=== PATIENT | female | born 1945 | race Caucasian/White ===

== ENCOUNTER 2022-09-12 00:02 | Day surgery (SDC) | payer MEDICARE, MEDICAID, SELFPAY ==
[2022-07-09 15:00] VITALS: BMI 32.3
[2022-08-27 13:10] VITALS: BMI 32.3
--- NOTE | 2022-09-11 15:02 | PM.HPGS ---
History of Present Illness History of Present Illness Consent: Risks, benefits, and alternatives have been discussed and questions answered. Patient agrees to proceed with procedure. Chief complaint: hx of colon polyps Narrative: Jessica Nguyen is a 76 year old female Referred for colon cancer screening. Six years ago she had 1 polyp removed at the time of colonoscopy. In the last few years she was diagnosed with spinal stenosis. This resulted in the inability to have a bowel movement for several days. Finally, by increasing dietary fiber and taking magnesium tablets she is having more normal stools. Now however she occasionally has leakage of stool. She has also been diagnosed with ALS. Review of Systems Review of Systems: All systems reviewed & are unremarkable except as noted in HPI and below PMFSH Social History Social History Smoking status: Never smoker Alcohol intake: never Substance use: never Substance use type: does not use Living arrangements: alone Spiritual care concerns: No Meds Home Medications and Allergies Home Medications Medication Instructions Recorded Confirmed Type atenolol 50 mg tablet 50 mg PO DAILY 07/09/22 08/27/22 History cyclobenzaprine 5 mg tablet 5 mg PO PRN 07/09/22 08/27/22 History magnesium 250 mg tablet 400 mg PO DAILY 07/09/22 08/27/22 History metformin 500 mg tablet 500 mg PO BID 07/09/22 08/27/22 History omega-3 fatty acids-fish oil 684 2 cap PO DAILY 07/09/22 08/27/22 History mg-1,200 mg capsule,delayed release omeprazole 20 mg capsule,delayed 20 mg PO DAILY 07/09/22 08/27/22 History release quinine sulfate 300 mg capsule 300 mg PO PRN 07/09/22 08/27/22 History syringe with needle 3 mL 25 gauge 07/09/22 08/27/22 History x 1 (BD Luer-Storm Syringe) tramadol 50 mg tablet 50 mg PO PRN 07/09/22 08/27/22 History Allergies Allergy/AdvReac Type Severity Reaction Status Date / Time gluten AdvReac Severe CHEST AND Verified 09/12/22 08:09 BACK PAIN Penicillins AdvReac Intermediate NAUSEA Verified 09/12/22 08:09 VOMITING NSAIDS (Non-Steroidal AdvReac Nausea and Verified 09/12/22 08:09 Anti-Inflamma Vomiting [id number] Reductase AdvReac Other Verified 09/12/22 08:09 Inhibitor Exam Const: General: alert Orientation/consciousness: patient oriented x3 Resp: Auscultation: clear to auscultation bilaterally Cardio: Rhythm: regular rhythm GI: GI Palp: Yes Soft to palpation and No Tenderness to palpation present (GI) Neuro: General: patient oriented x3 Assessment and Plan Assessment and plan (1) Colon cancer screening: Code(s): Z12.11 - Encounter for screening for malignant neoplasm of colon Status: Acute Assessment and Plan: Colonoscopy with possible biopsy or polypectomy or cautery or injection of substances.
[2022-09-12 08:10] VITALS: BP 173/70; PULSE 71; RESP 18; TEMP 36.1; O2SAT 98; BMI 32.1
[2022-09-12] MEDS: LACTATED RINGERS 1,000 ML 150 ML IV CONT (08:21)
[2022-09-12 08:26] LABS: Glucose Point of Care 163 mg/dl (65-105)
--- NOTE | 2022-09-12 09:09 | P.PNAN_ITS ---
Anes - Initial Pre Proc Eval Procedure: Operation Date: 09/12/22 09:15 Proposed Procedures p Screening Colonoscopy - Live Amin MD Date/Time: 09/12/22 09:09 Surgeon: Live Amin MD Pre Op Diagnosis: hx of colon polyps Patient Data Age: 76 Gender: F Height: 1.63 m Weight: 84.8 kg Last Vital Signs Temp 97 F L 09/12/22 08:10 Pulse 71 09/12/22 08:10 Resp 18 09/12/22 08:10 BP 173/70 H 09/12/22 08:10 Pulse Ox 98 09/12/22 08:10 O2 Del Method Room Air 09/12/22 08:10 Allergies Allergy/AdvReac Type Severity Reaction Status Date / Time gluten AdvReac Severe CHEST AND Verified 09/12/22 08:09 BACK PAIN Penicillins AdvReac Intermediate NAUSEA Verified 09/12/22 08:09 VOMITING NSAIDS (Non-Steroidal AdvReac Nausea and Verified 09/12/22 08:09 Anti-Inflamma Vomiting Ahaglcf-[id number] Reductase AdvReac Other Verified 09/12/22 08:09 Inhibitor Home Medications Medication Instructions Recorded Confirmed Type atenolol 50 mg tablet 50 mg PO DAILY 07/09/22 08/27/22 History cyclobenzaprine 5 mg tablet 5 mg PO PRN 07/09/22 08/27/22 History magnesium 250 mg tablet 400 mg PO DAILY 07/09/22 08/27/22 History metformin 500 mg tablet 500 mg PO BID 07/09/22 08/27/22 History omega-3 fatty acids-fish oil 684 2 cap PO DAILY 07/09/22 08/27/22 History mg-1,200 mg capsule,delayed release omeprazole 20 mg capsule,delayed 20 mg PO DAILY 07/09/22 08/27/22 History release quinine sulfate 300 mg capsule 300 mg PO PRN 07/09/22 08/27/22 History syringe with needle 3 mL 25 gauge 07/09/22 08/27/22 History x 1 (BD Luer-Storm Syringe) tramadol 50 mg tablet 50 mg PO PRN 07/09/22 08/27/22 History Laboratory Tests 09/12/22 08:20 POC Capillary Glucose 163 mg/dl H mg/dl (65-105) Patient hx anesthesia problems: none Family hx anesthesia problems: none Results Review: All pre-operative results and documents have been reviewed as part of the pre- operative evaluation. [facility] Social History Social History Smoking status: Never smoker Alcohol intake: never Substance use: never Substance use type: does not use Living arrangements: alone Spiritual care concerns: No Anes - Eval Final PreProcedure Day of Procedure 09/12/22 09:09 Patient weight: obese Heart: regular rate and rhythm Lungs: clear to auscultation Neurological: alert and oriented Last oral intake: >/= 8 hours Emergent: no Anesthetic plan: proceed Results Review: All pre-operative results and documents have been reviewed as part of the pre- operative evaluation. Informed Consent: The patient's anesthetic plan and its attendant risks and benefits were discussed with the patient/family/POA. Questions were solicited and answers provided to the satisfaction of the patient/family/POA.
[2022-09-12 09:43] VITALS: BP 130/68; PULSE 74; RESP 18; O2SAT 97
[2022-09-12 09:53] VITALS: BP 139/74; PULSE 62; RESP 18; O2SAT 99
[2022-09-12 09:57] VITALS: BP 135/72; PULSE 66; RESP 18; O2SAT 98
== END 2022-09-12 10:14 | disposition home or self-care (01) ==
PROVIDERS: PCP Nurse Practitioner Adult Health; Visit Provider Internal Medicine Gastroenterology
PROC: 0DJD8ZZ Inspection of Lower Intestinal Tract, Via Natural or Artificial Opening Endoscopic (ICD-10-PCS; CPT 45378; principal; 2022-09-12 09:15)
DX: Z12.11 Encounter for screening for malignant neoplasm of colon (principal); D12.4 Benign neoplasm of descending colon; K57.30 Diverticulosis of large intestine without perforation or abscess without bleeding; Z79.84 Long term (current) use of oral hypoglycemic drugs; E66.9 Obesity, unspecified; Z68.32 Body mass index [BMI] 32.0-32.9, adult
CPT/HCPCS: 45385; 82948; 88305; J2704; J7120

== ENCOUNTER 2022-11-12 01:42 | Day surgery (SDC) | payer MEDICARE, MEDICAID, SELFPAY ==
[2022-10-31 10:31] VITALS: BMI 32.7
[2022-11-12 08:29] VITALS: BP 172/86; PULSE 72; RESP 18; TEMP 36.5; O2SAT 99; BMI 32.9
--- NOTE | 2022-11-12 08:39 | PM.HPGS ---
History of Present Illness History of Present Illness Consent: Risks, benefits, and alternatives have been discussed and questions answered. Patient agrees to proceed with procedure. Chief complaint: hx of esophageal tumor Narrative: Jessica Nguyen is a 76 year old female here for follow-up of a previously diagnosed esophageal polyp. She had been referred to [facility] where a was removed. I told her that it was a potentially cancers lesion. She was supposed to go back for a recheck 6 months later but was unable to do so. She is having some swallowing issues. She feels that maybe neurologic, she has ALS syndrome. It Is certain liquid consistencies that give her difficulty. Review of Systems Review of Systems: All systems reviewed & are unremarkable except as noted in HPI and below PMFSH Social History Social History Smoking status: Never smoker Alcohol intake: never Substance use: never Substance use type: does not use Living arrangements: alone Spiritual care concerns: No Meds Home Medications and Allergies Home Medications Medication Instructions Recorded Confirmed Type atenolol 50 mg tablet 50 mg PO DAILY 07/09/22 11/12/22 History cyclobenzaprine 5 mg tablet 5 mg PO TID PRN muscle spasms 07/09/22 11/12/22 History magnesium 250 mg tablet 500 mg PO HS 07/09/22 11/12/22 History metformin 500 mg tablet 1,000 mg PO BID 07/09/22 11/12/22 History omega-3 fatty acids-fish oil 684 2 cap PO DAILY 07/09/22 11/12/22 History mg-1,200 mg capsule,delayed release omeprazole 20 mg capsule,delayed 20 mg PO DAILY 07/09/22 11/12/22 History release quinine sulfate 300 mg capsule 300 mg PO TID PRN temors 07/09/22 11/12/22 History syringe with needle 3 mL 25 gauge 07/09/22 11/12/22 History x 1 (BD Luer-Storm Syringe) tramadol 50 mg tablet 50 - 100 mg PO Q6H PRN Pain 07/09/22 11/12/22 History cyanocobalamin (vitamin B-12) 1,000 mcg IM WEEKLY 10/31/22 11/12/22 History 1,000 mcg/mL injection solution fluticasone propionate 50 1 spray intranasal DAILY PRN 10/31/22 11/12/22 History mcg/actuation nasal Allergy Symptoms spray,suspension Allergies Allergy/AdvReac Type Severity Reaction Status Date / Time gluten AdvReac Severe CHEST AND Verified 11/12/22 08:27 BACK PAIN Penicillins AdvReac Intermediate NAUSEA Verified 11/12/22 08:27 VOMITING NSAIDS (Non-Steroidal AdvReac Nausea and Verified 11/12/22 08:27 Anti-Inflamma Vomiting Hwnqrkx-RKF-VnH Reductase AdvReac Other Verified 11/12/22 08:27 Inhibitor Vital Signs Vital Signs - 24 hr 11/12/22 08:29 Temperature 36.5 C Pulse Rate 72 Respiratory Rate 18 Blood Pressure 172/86 H Pulse Oximetry 99 Oxygen Delivery Room Air Exam Const: General: alert Orientation/consciousness: patient oriented x3 Resp: Auscultation: clear to auscultation bilaterally Cardio: Rhythm: regular rhythm GI: GI Palp: Yes Soft to palpation and No Tenderness to palpation present (GI) Neuro: General: patient oriented x3 Assessment and Plan Assessment and plan (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
[2022-11-12 08:41] LABS: Glucose Point of Care 203 mg/dl (65-105)
[2022-11-12] MEDS: LACTATED RINGERS 1,000 ML 150 ML IV CONT (08:43)
--- NOTE | 2022-11-12 09:13 | WPDANESEPPF ---
Anes - Initial Pre Proc Eval Procedure: Operation Date: 11/12/22 09:30 Proposed Procedures p Esophagogastroduodenoscopy EGD - Live Amin MD Date/Time: 11/12/22 09:13 Surgeon: Live Amin MD Pre Op Diagnosis: hx of esophageal tumor Patient Data Age: 76 Gender: F Height: 1.63 m Weight: 87 kg Last Vital Signs Temp 97.7 F 11/12/22 08:29 Pulse 72 11/12/22 08:29 Resp 18 11/12/22 08:29 BP 172/86 H 11/12/22 08:29 Pulse Ox 99 11/12/22 08:29 O2 Del Method Room Air 11/12/22 08:29 Allergies Allergy/AdvReac Type Severity Reaction Status Date / Time gluten AdvReac Severe CHEST AND Verified 11/12/22 08:27 BACK PAIN Penicillins AdvReac Intermediate NAUSEA Verified 11/12/22 08:27 VOMITING NSAIDS (Non-Steroidal AdvReac Nausea and Verified 11/12/22 08:27 Anti-Inflamma Vomiting Mayvgid-[id number] Reductase AdvReac Other Verified 11/12/22 08:27 Inhibitor Home Medications Medication Instructions Recorded Confirmed Type atenolol 50 mg tablet 50 mg PO DAILY 07/09/22 11/12/22 History cyclobenzaprine 5 mg tablet 5 mg PO TID PRN muscle spasms 07/09/22 11/12/22 History magnesium 250 mg tablet 500 mg PO HS 07/09/22 11/12/22 History metformin 500 mg tablet 1,000 mg PO BID 07/09/22 11/12/22 History omega-3 fatty acids-fish oil 684 2 cap PO DAILY 07/09/22 11/12/22 History mg-1,200 mg capsule,delayed release omeprazole 20 mg capsule,delayed 20 mg PO DAILY 07/09/22 11/12/22 History release quinine sulfate 300 mg capsule 300 mg PO TID PRN temors 07/09/22 11/12/22 History syringe with needle 3 mL 25 gauge 07/09/22 11/12/22 History x 1 (BD Luer-Storm Syringe) tramadol 50 mg tablet 50 - 100 mg PO Q6H PRN Pain 07/09/22 11/12/22 History cyanocobalamin (vitamin B-12) 1,000 mcg IM WEEKLY 10/31/22 11/12/22 History 1,000 mcg/mL injection solution fluticasone propionate 50 1 spray intranasal DAILY PRN 10/31/22 11/12/22 History mcg/actuation nasal Allergy Symptoms spray,suspension Laboratory Tests 11/12/22 08:38 POC Capillary Glucose 203 mg/dl H mg/dl (65-105) Patient hx anesthesia problems: none Family hx anesthesia problems: none Results Review: All pre-operative results and documents have been reviewed as part of the pre-operative evaluation. [facility] Social History Social History Smoking status: Never smoker Alcohol intake: never Substance use: never Substance use type: does not use Living arrangements: alone Spiritual care concerns: No Anes - Eval Final PreProcedure Day of Procedure 11/12/22 09:13 Patient weight: obese Heart: regular rate and rhythm Lungs: clear to auscultation Airway: Mallampati scale class II Neurological: alert and oriented Last oral intake: >/= 8 hours ASA classification: III Emergent: no Anesthetic plan: proceed Anesthesia type and monitoring: general GIVS and standard monitoring Results Review: All pre-operative results and documents have been reviewed as part of the pre-operative evaluation. Informed Consent: The patient's anesthetic plan and its attendant risks and benefits were discussed with the patient/family/POA. Questions were solicited and answers provided to the satisfaction of the patient/family/POA.
[2022-11-12 09:22] VITALS: BP 143/73; PULSE 72; RESP 16; O2SAT 94
[2022-11-12 09:32] VITALS: BP 146/79; PULSE 65; RESP 22; O2SAT 98
[2022-11-12 09:42] VITALS: BP 146/88; PULSE 76; RESP 17; O2SAT 98
== END 2022-11-12 10:00 | disposition home or self-care (01) ==
PROVIDERS: PCP Family Medicine; Visit Provider Internal Medicine Gastroenterology
PROC: 0DJ08ZZ Inspection of Upper Intestinal Tract, Via Natural or Artificial Opening Endoscopic (ICD-10-PCS; CPT 43235; principal; 2022-11-12 09:30)
DX: Z09 Encounter for follow-up examination after completed treatment for conditions other than malignant neoplasm (principal); K21.9 Gastro-esophageal reflux disease without esophagitis; Z87.19 Personal history of other diseases of the digestive system; Z79.84 Long term (current) use of oral hypoglycemic drugs; E66.9 Obesity, unspecified; Z68.32 Body mass index [BMI] 32.0-32.9, adult
CPT/HCPCS: 43235; 82948; J2704; J7120

== ENCOUNTER 2023-12-02 11:31 | Outpatient (CLI) | payer MEDICARE, MEDICAID, SELFPAY ==
[2023-12-02 19:44] LABS: Hematocrit 47.2 % (37.0-47.0); Hemoglobin 14.9 g/dL (12.0-15.0); Mean Corpuscular HGB Conc 31.6 g/dl (32-36); Mean Corpuscular Hemoglobin 27.6 pg (26-34); Mean Corpuscular Volume 87.6 fl (80-100); Mean Platelet Volume 11.8 fl (7.4-10.4); Platelet Count Result 228 k/mm3 (150-375); Red Blood Count 5.39 M/mm3 (4.2-5.4); Red Cell Distribution Width 13.3 % (11.5-14.5); White Blood Count 11.5 K/mm3 (4.5-10.0)
[2023-12-02 21:21] LABS: Anion Gap 13 mmol/L (8-16); Blood Urea Nitrogen 16 mg/dL (7-17); Calcium 10.1 mg/dL (8.4-10.2); Carbon Dioxide 25 mmol/L (22-30); Chloride 103 mmol/L (98-107); Cholesterol 218 mg/dL (0-200); Estimated Glomerular Filt Rate > 60; Glucose 136 mg/dL (65-110); HDL Direct 33 mg/dL; Potassium 4.2 mmol/L (3.4-5.0); Sodium 141 mmol/L (137-145); Triglycerides 239 mg/dL (<150)
[2023-12-02 21:33] LABS: LDL Cholesterol Direct 147 mg/dL
[2023-12-02 21:48] LABS: Creatinine Urine 78.9 mg/dL
[2023-12-02 21:50] LABS: MALB Creatinine Ratio 10.8 mg/g (0-30); Microalbumin Urine Random 8.5 mg/L (0-16.7)
[2023-12-02 21:53] LABS: Thyroid Stimulating Hormone 0.116 uIU/mL (0.465-4.680)
[2023-12-02 22:28] LABS: Folic Acid > 20.0 ng/mL (2.76->20)
[2023-12-02 23:27] LABS: Hemoglobin A1C 7.3 % (<5.7)
[2023-12-02 23:29] LABS: Iron 160 ug/dL (37-170); Percent Iron Saturation 41 % (20-50)
== END 2023-12-02 11:32 | disposition home or self-care (01) ==
LOC: ANHBWCLAB 11:35
PROVIDERS: PCP Nurse Practitioner Adult Health; Visit Provider Nurse Practitioner Adult Health
DX: E11.9 Type 2 diabetes mellitus without complications (principal); E53.8 Deficiency of other specified B group vitamins; E55.9 Vitamin D deficiency, unspecified; G12.21 Amyotrophic lateral sclerosis; L65.9 Nonscarring hair loss, unspecified
CPT/HCPCS: 36415; 80048; 80061; 82043; 82306; 82607; 82728; 82746; 83036; 83540; 83550; 84443; 85027

== ENCOUNTER 2024-01-05 09:01 | Outpatient (CLI) | payer MEDICARE, MEDICAID, SELFPAY ==
--- NOTE | ~2024-01-05 | XR_ITS ---
EXAMINATION: XR abdomen/kub 1V DATE: 01/05/2024 09:16 INDICATION: Right abdominal pain. TECHNIQUE: A supine view of the abdomen on 2 radiographs was obtained. COMPARISON: None. FINDINGS: There are no dilated loops of bowel. There is a moderate volume of stool in the colon. Ther e is no visible urolithiasis. IMPRESSION: 1. Nonobstructive bowel gas pattern. Reviewed, dictated and finalized at location A. OR UI DESIGNER
[2024-01-05 20:25] LABS: Appearance Urine Clear (Clear); Bacteria Urine Rare /hpf; Bilirubin Urine Negative (Negative); Blood Urine Negative (Negative); Color Urine Yellow (Yellow); Glucose Urine UA Negative (Negative); Ketones Urine Negative (Negative); Leukocyte Esterase Ur 2+ LEU/UL (NEGATIVE); Need Manual Microscopic Reviewed; Nitrate Urine Negative (Negative); Non Pathogenic Casts 0-2; Protein Urine Negative (Negative); RBC Urine 0-2 /hpf (0-2); Specific Grav Ur 1.018 (1.001-1.035); Squamous Epithelial Cell Urine None seen /hpf (Few); Urobilinogen Urine 0.2 mg/dL (<2.0); WBC Urine 0-5 /hpf (0-3); pH Urine 6.5 (5.0-9.0)
[2024-01-05 20:26] LABS: Add Urine Microscopic? YES
== END 2024-01-05 09:02 | disposition home or self-care (01) ==
PROVIDERS: PCP Nurse Practitioner Adult Health; Visit Provider Nurse Practitioner Adult Health
DX: R10.9 Unspecified abdominal pain (principal)
CPT/HCPCS: 74018; 81001

== ENCOUNTER 2024-02-09 08:42 | Outpatient (CLI) | payer MEDICARE, MEDICAID, SELFPAY ==
--- NOTE | ~2024-02-09 | XR_ITS ---
EXAMINATION: XR UGIAC w barium swallow DATE: 02/09/2024 09:39 INDICATION: Cough, unspecified. TECHNIQUE: The patient drank thick barium, gas-producing crystals, and thin barium. Fluoroscopy of th e esophagus, stomach, and proximal small bowel was performed. Fluoroscopy exposure time was 0.5 minut es. The total number of images was 274. Total dose-area product was 1.924 Gy-cm^2. COMPARISON: None. FINDINGS: There is no mass or stricture of the esophagus. There is decreased primary and secondary es ophageal peristalsis. There is no hiatal hernia. There was no gastroesophageal reflux with provocativ e maneuvers. The stomach and proximal small bowel show normal folding patterns. IMPRESSION: 1. Mild esophageal dysmotility. Reviewed, dictated and finalized at location A.
== END 2024-02-09 08:43 | disposition home or self-care (01) ==
LOC: ANHIMG 08:45
PROVIDERS: PCP Nurse Practitioner Adult Health; Visit Provider Nurse Practitioner Family
DX: K22.4 Dyskinesia of esophagus (principal); R05.9 Cough, unspecified
CPT/HCPCS: 74246

== ENCOUNTER 2024-02-10 12:48 | Outpatient (CLI) | payer MEDICARE, MEDICAID, SELFPAY ==
--- NOTE | 2024-02-22 17:28 | P.PCNPFT_ITS ---
PFT Procedure Performed PFT Procedure Performed Spirometry with Pre/Post Bronchodilator Plethysmography (Lung Vol) Diffusing Cap (DLCO) Flow Vol Loop PFT Interpretation DOS: 02/10/2024 REQUESTING: Arnold Owen APRN REASON FOR TESTING: Dyspnea, ALS-amyotrophic lateral sclerosis for 26 years PULMONARY FUNCTION TESTS Repeatability of spirometry FEV1 maneuver pre-bronchodilator was Grade B; , repeatability of spirometry FEV1 maneuver post-bronchodilator was Grade A Spirometry: Pre bronchodilator FEV1 is 2.23 L, 113% predicted, normal. Pre bronchodilator FVC is 3.08 L, 119%, normal. FEV1/FVC ratio 73%. After bronchodilator, there is a 13% increase in the FEV1, 2.52 L, 128%, normal. Afte r bronchodilator there is a 2% drop in the FVC, 3.02 L, 117%, normal. The FEV1/FVC ratio is 83% after bronchodilator administration. Lung volumes: The total lung capacity is 5.0 L, 99%, normal. ERV is 0.15 L, 17%, low. Residual volume is 1.88 L, 79% predicted, normal. RV/TLC is 38%, normal. Airway resistance is 2.47, 156% predicted, elevated. Diffusion: DLCO is 18.7, 96% predicted, normal. DLCO/VA is 4.44, 107%, normal. Flow volume loop: There is a lack of peak during the expiratory limb of the flow volume loop. Maximum inspiratory pressure is 37 cm of water pressure, 58% predicted. This is below the lower limit of normal. Maximum expiratory pressure is 40 cm water, 31% predicted, extremely low. This is below the lower limit of normal. IMPRESSION: This study shows normal spirometry with a significant response to bronchodilator, normal lung volumes and normal diffusion. The maximum inspiratory pressure is 58% predicted, slightly below the lower limit of normal. This is still close enough to normal that elevated pCO2 is not expected. The maximum expiratory pressure is reduced significantly more than the MIP. This finding may be associated with a weak cough and difficulty clearing secretions. This specific values noted for MIP and MEP are less important than trends. She has had ALS for 26 years, is clinically stable. There are no old values to compare. Nery Mercado MD
--- NOTE | 2024-02-22 17:47 | WPDSIXMINUTE ---
Six Minute Walk Procedure Procedure Performed Pulmonary Stress Test (6 min walk) Six Minute Walk Six Minute Walk: DATE OF SERVICE: 02/10/2024 REQUESTING: Arnold Owen APRN REASON FOR TESTING: dyspnea, ALS SIX MINUTE WALK This test was conducted per ATS guidelines. The initial saturation was 98%, and initial heart rate was 70 beats per minute. The patient walked without stopping, completing 800 ft/243.8 m. The saturation at the end of testing was 96%, and the heart rate was 80 beats per minute. The distance walked is slightly less than expected for her age. IMPRESSION: This is a normal study. The patient did not require supplemental oxygen with exertion. Nery Mercado MD
== END 2024-02-10 12:49 | disposition home or self-care (01) ==
PROVIDERS: PCP Nurse Practitioner Adult Health; Visit Provider Nurse Practitioner Family
DX: R06.09 Other forms of dyspnea (principal); G12.21 Amyotrophic lateral sclerosis
CPT/HCPCS: 94060; 94618; 94726; 94729

== ENCOUNTER 2024-05-16 09:37 | Outpatient (CLI) | payer MEDICARE, MEDICAID, SELFPAY ==
[2024-05-16 18:58] LABS: Basophils Absolute Auto 0.1 K/mm3 (0.0-0.1); Basophils Percent Auto 0.8 % (0.2-1.2); Eosinophils Absolute Auto 0.3 K/mm3 (0-0.3); Eosinophils Percent Auto 2.6 % (0-4.4); Hematocrit 46.2 % (37.0-47.0); Hemoglobin 15.2 g/dL (12.0-15.0); Immature Granulocyte Absolute 0.06 K/mm3 (0.00-0.031); Immature Granulocyte Percent A 0.6 % (0-0.5); Lymphocytes Absolute Auto 2.81 K/mm3 (0.9-3.2); Lymphocytes Percent Auto 29.7 % (18.3-44.2); Mean Corpuscular HGB Conc 32.9 g/dl (32-36); Mean Corpuscular Hemoglobin 29.3 pg (26-34); Mean Corpuscular Volume 89.2 fl (80-100); Mean Platelet Volume 11.3 fl (7.4-10.4); Monocytes Absolute Auto 0.6 K/mm3 (0.1-0.6); Monocytes Percent Auto 6.6 % (2.6-8.5); Neutrophils Absolute Auto 5.6 K/mm3 (1.3-6.7); Neutrophils Percent Auto 59.7 % (45.5-73.1); Platelet Count Result 175 k/mm3 (150-375); Red Blood Count 5.18 M/mm3 (4.2-5.4); Red Cell Distribution Width 13.5 % (11.5-14.5); White Blood Count 9.5 K/mm3 (4.5-10.0)
[2024-05-16 19:36] LABS: Creatinine Urine 73.3 mg/dL
[2024-05-16 20:36] LABS: MALB Creatinine Ratio < 8.2 mg/g (0-30); Microalbumin Urine Random < 6.0 mg/L (0-16.7)
[2024-05-16 22:27] LABS: Vitamin D 25 Hydroxy 33.9 ng/mL
[2024-05-16 23:21] LABS: Alanine Aminotransferase 32 U/L (6-35); Albumin Level 4.5 g/dL (3.5-5.1); Alkaline Phosphatase 46 U/L (38-126); Anion Gap 5 mmol/L (4-12); Aspartate Amino Transferase 34 U/L (14-36); Bilirubin,Total 0.6 mg/dL (0.2-1.3); Blood Urea Nitrogen 14 mg/dL (7-17); Calcium 9.8 mg/dL (8.4-10.2); Carbon Dioxide 29 mmol/L (22-30); Chloride 103 mmol/L (98-107); Cholesterol 209 mg/dL (0-200); Estimated Glomerular Filt Rate > 60; Glucose 132 mg/dL (65-110); HDL Direct 42 mg/dL; Magnesium 2.1 mg/dL (1.6-2.3); Potassium 4.5 mmol/L (3.4-5.0); Sodium 137 mmol/L (137-145); Triglycerides 220 mg/dL (<150)
[2024-05-16 23:32] LABS: LDL Cholesterol Direct 132 mg/dL
[2024-05-17 01:13] LABS: Hemoglobin A1C 6.5 % (<5.7)
== END 2024-05-16 09:38 | disposition home or self-care (01) ==
PROVIDERS: PCP Nurse Practitioner Adult Health; Visit Provider Nurse Practitioner Adult Health
DX: E55.9 Vitamin D deficiency, unspecified (principal); I10 Essential (primary) hypertension; E11.9 Type 2 diabetes mellitus without complications; E53.8 Deficiency of other specified B group vitamins
CPT/HCPCS: 36415; 80053; 80061; 82043; 82306; 82607; 82746; 83036; 83735; 85025

== ENCOUNTER 2024-08-29 09:51 | Outpatient (CLI) | payer MEDICARE, MEDICAID, SELFPAY ==
[2024-08-29 18:53] LABS: Add Urine Microscopic? YES; Appearance Urine Clear (Clear); Bacteria Urine Rare /hpf; Bilirubin Urine Negative (Negative); Blood Urine Negative (Negative); Color Urine Yellow (Yellow); Glucose Urine UA Negative (Negative); Ketones Urine Negative (Negative); Leukocyte Esterase Ur 2+ LEU/UL (Negative); Nitrate Urine Negative (Negative); Non Pathogenic Casts 0-2; Protein Urine Negative (Negative); RBC Urine 0-2 /hpf (0-2); Specific Grav Ur 1.013 (1.001-1.035); Squamous Epithelial Cell Urine None Seen /hpf (Few); Urobilinogen Urine 0.2 mg/dL (<2.0); pH Urine 7.5 (5.0-9.0)
[2024-08-29 19:00] LABS: Alanine Aminotransferase 27 U/L (6-35); Albumin Level 4.3 g/dL (3.5-5.1); Alkaline Phosphatase 42 U/L (38-126); Anion Gap 6 mmol/L (4-12); Aspartate Amino Transferase 36 U/L (14-36); Bilirubin,Total 0.5 mg/dL (0.2-1.3); Blood Urea Nitrogen 19 mg/dL (7-17); Calcium 9.4 mg/dL (8.4-10.2); Carbon Dioxide 28 mmol/L (22-30); Chloride 104 mmol/L (98-107); Cholesterol 218 mg/dL (0-200); Estimated Glomerular Filt Rate > 60; Glucose 146 mg/dL (65-110); HDL Direct 44 mg/dL; Potassium 4.1 mmol/L (3.4-5.0); Sodium 138 mmol/L (137-145); Triglycerides 125 mg/dL (<150)
[2024-08-29 19:08] LABS: Hemoglobin A1C 6.5 % (<5.7)
[2024-08-29 19:11] LABS: LDL Cholesterol Direct 154 mg/dL
[2024-08-29 19:19] LABS: Creatinine Urine 43.5 mg/dL
[2024-08-29 19:21] LABS: MALB Creatinine Ratio 14.3 mg/g (0-30); Microalbumin Urine Random 6.2 mg/L (0-16.7)
[2024-08-29 19:34] LABS: Vitamin D 25 Hydroxy 40.9 ng/mL
== END 2024-08-29 09:52 | disposition home or self-care (01) ==
PROVIDERS: PCP Nurse Practitioner Adult Health; Visit Provider Nurse Practitioner Adult Health
DX: R39.9 Unspecified symptoms and signs involving the genitourinary system (principal); E11.9 Type 2 diabetes mellitus without complications; I10 Essential (primary) hypertension; E55.9 Vitamin D deficiency, unspecified; E53.8 Deficiency of other specified B group vitamins
CPT/HCPCS: 36415; 80053; 80061; 81001; 82043; 82306; 82565; 82607; 83036; 87086; 87088

== ENCOUNTER 2025-03-15 10:06 | Outpatient (CLI) | payer MEDICARE, SELFPAY ==
--- NOTE | ~2025-03-15 | XR_ITS ---
Clinical Indication: Dyspnea, cough PA and lateral views of the chest: Comparison: None Findings: The lungs are clear, without evidence of focal consolidation or pleural effusion. Cardiome diastinal silhouette is within normal limits. Bones and soft tissues are unremarkable. Impression: Normal chest. Reviewed, dictated and finalized at location . Impression: Normal chest.
--- OUTSIDE RECORDS SUMMARY | 2025-03-15 11:07 | XMS_ITS | Continuity of Care Document ---
Author Organization [facility] Address [address] [place] [address] Phone Care Team Providers Care Campaign Management Senior Manager Name Role Phone Paris Sandoval Unavailable Unavailable Advance Directives Directive Yes / No Effective Date File Name No Information Encounters Encounter Description Practice Location Reason(s) For Visit Diagnoses Date Provider Providers Copied on Encounter [facility], [address], [place], [place], [id number], [place] tel:[phone] [facility] No Information [address] [place]. [address] , [address], [place], [address], [place]. tel:[phone] Family History Family Member Type Diagnosis Age At Onset No Information Payers Payer name Insurance type Covered alliance party ID Authoriza tion(s) No Information Social History Type Description Quantity Date Captured Comments Sex Female Smoking Status No Information Chief Complaint And Reason For Visit No Information Reason For Referral Reason For Referral No Information History Of Present Illness Encounter Date Complaint History Of Prese nt Illness No Information Functional Status Date Functional Assessmen t No Information Instructions Date Instruction Additional Infor mation No Information Assessments Type Assessment Date No Information Patient Care Teams Name Effective Dates (start - stop) Status Members No Information
--- OUTSIDE RECORDS SUMMARY | 2025-03-15 11:07 | XMS_ITS | Clinical Summary ---
Author Organization [facility] Medical Office Building B Address [address] [place] [address] Care Team Providers Care Cuff Setter Name Role Phone Layla Mitchell RN Unavailable Unavailable Sophia Pérez NP Primary Care Provider [phone] Allergies Active Allergy Reactions Criticality Noted Date Comments Cefdinir Diarrhea Low 11/04/2019 Cephalexin Other (See comments) Low 02/22/2016 Yeast infection Rosuvastatin Muscle pain Medium 11/04/2019 Etodolac Diarrhea,Nausea Only Low 02/22/2016 Gluten Other (See comments) Low 02/22/2016 Ibuprofen Nausea Only,Headache Low 02/22/2016 Indomethacin Other (See comments) Low 02/22/2016 headache Oxacillin Rash Medium 02/22/2016 Penicillin G Other (See comments) Medium Abdominal pain Penicillins Nausea Only,Other (S ee comments) Low 02/22/2016 Tolmetin Diarrhea Low 02/22/2016 Azithromycin Diarrhea Low 11/04/2019 Medications quiNIDine 300 mg tablet take 1 tablet by oral route 3 times every day with food 0 0 5 Active blood sugar diagnostic, drum (ACCU-CHEK COMPACT PLUS TEST) strip 0 strip 0 5 Active omeprazole 20 mg tablet,delayed release (DR/EC) 20 mg. 0 2 Active traMADol (ULTRAM) 50 mg tablet 1 8 Active atenolol (TENORMIN) 50 mg tablet Take 50 mg by mouth. Active cyclobenzaprine (FLEXERIL) 5 mg tablet Take 5 mg by mouth. Active metFORMIN (GLUCOPHAGE) 500 mg tablet Take 1,000 mg by mouth. Active ACCU-CHEK SARA PLUS TEST STRP strip TEST BID 3 9 Active DOXYCYCLINE HYCLATE 100 mg capsule 9 Active fluticasone propionate (FLONASE) 50 mcg/actuation nasal spray 9 Active cholecalciferol, vitD3,/vit K2 (VITAMIN D3-VITAMIN K2 ORAL) Take by mouth Active sucralfate (CARAFATE) 1 gram tabletIndication s:gastroesophage al reflux disease,esophage al squamous papilloma removed Take 1 tablet (1 g total) by mouth 4 (four) times a day for 14 days 56 tablet 9 Active acetaminophen 500 mg capsule Take by mouth as needed Active BD Luer-Storm Syringe 3 mL 25 gauge x 1 syringe DIRECTED WITH B12 INJECTION WEEKLY 4 Active lisinopriL (PRINIVIL,ZESTRI L) 40 mg tablet Take 1 tablet (40 mg total) by mouth daily 4 Active methylPREDNISolo ne (Medrol, Peyman,) 4 mg DosepackIndicati ons:Upper respiratory tract infection, unspecified type follow package directions 21 tablet 4 Active Active Problems Problem Noted Date Diagnosed Date Amyotrophic lateral sclerosis 12/08/2019 Arthritis 12/08/2019 Chronic pain 12/08/2019 Hyperlipidemia 12/08/2019 Hypertensive disorder 12/08/2019 Injury of tendon of rotator cuff 12/08/2019 Insomnia 12/08/2019 Shoulder pain 12/08/2019 Sleep apnea 12/08/2019 Type 2 diabetes mellitus 12/08/2019 Vitamin D deficiency 12/08/2019 Esophageal polyp 09/30/2019 Overview (09/30/2019): Added automatically from request for surgery [id number] [place] of foot 02/22/2016 Dermatophytosis of nail 02/22/2016 Diabetic polyneuropathy asso ciated with type 2 diabetes mellitus 02/22/2016 Ingrown nail 02/22/2016 Mass of breast 05/09/2010 Surgical History Surgery Date Site/Laterality Comments HYSTERECTOMY Hysterectomy APPENDECTOMY Appendectomy KNEE ARTHROSCOPY 11/30/1996 - 11/29/1997 Left Arthroscopy knee TONSILLECTOMY Tonsillectomy KNEE ARTHROPLASTY Bilateral Knee replacement COLONOSCOPY 2008 COLON POLYPECTOMY 2008 Medical History Medical History Date Comments Calculus of kidney kidney stones Hx Other Medical Breast biopsy Hx Other Medical degenertive dis c syndrome Gastroesophageal reflux disease GERD Depression Depression Hyperlipidemia Hyperlipidemia Hypertension Hypertension Osteoarthritis Osteoarthritis Diabetes mellitus (HCC) Diabetes Hx Other Medical myofibrosites Hx Other Medical urteral stone Hx Other Medical urethral stone extraxtion Hx Other Medical back pain Hx Other Medical abnormal heartb eat Sleep apnea Sleep apnea ALS (amyotrophic lateral sclerosis) (HCC) familiail diagnosis(rare inherited form), less aggressive, not as debilatating. Family History Medical History Relation Name Comments Stroke Father Breast cancer Mother Lung cancer Other 1 Family history of Cancer, lung; Coronary artery disease Other 2 Fami ly history of Coronary artery disease; Diabetes Other 3 Family history of Diabetes mellitus; Gout Other 4 Family history of Gout; Breast cancer Other 5 Family history of Cancer, breast; Other Other 6 Family history of Cancer, bone; Other Other 7 Family history of Cancer, brain; Skin cancer Other 8 Family history of cancer, skin; Hypertension Other 9 Family history of Hypertension; Lung disease Other 10 Family history of lung disease; Osteoarthritis Other 11 Family histor y of Osteoarthritis; Mental illness Other 12 Family histor y of Mental illness; Stroke Other 13 Family history of Stroke; Alcohol abuse Other 14 Family history of Alcoholism; Other Other 15 Family history of ALS; Relation Name Status Comments Father Mother Other 1 Other 2 Other 3 Other 4 Other 5 Other 6 Other 7 Other 8 Other 9 Other 10 Other 11 Other 12 Other 13 Other 14 Other 15 Social History Tobacco Use Types Packs/Day Years Used Date Smoking Tobacco: Former Smokeless Tobacco: Never Alcohol Use Standard Drinks/Week Comments No 0 (1 standard drink = 0.6 oz pur e alcohol) Comments Unknown Sex and Gender Information Value Date Recorded Sex Assigned at Not on file Legal Sex Female 12:46 AM SHAPER HAND Gender Identity Female 01/24/2021 6:39 PM SHAPER HAND Sexual Orientation Straight 01/24/2021 6: 39 PM SHAPER HAND Obstetrics History Last Filed Vital Signs Vital Sign Reading Time Taken Comments Blood Pressure 142/80 10/11/2024 2:56 PM SHAPER HAND Pulse 85 10/11/2024 2:56 PM SHAPER HAND Temperature 36.7 C (98 F) 10/11/2024 2:56 PM SHAPER HAND Respiratory Rate 17 10/11/2024 2:56 PM SHAPER HAND Oxygen Saturation 98% 10/11/2024 2:56 PM SHAPER HAND Inhaled Oxygen Concentration - - Weight 88 kg (194 lb) 10/11/2024 2:56 PM SHAPER HAND Height 162.6 cm (5' 4 ) 10/11/2024 2:56 PM SHAPER HAND Body Mass Index 33.3 10/11/2024 2:56 PM SHAPER HAND Plan of Treatment Health Maintenance Due Date Last Done Comments Albumin Creatinine Ratio, Urine 1944 Depression Screening 1944 Fall Risk Assessment 1944 Hemoglobin A1C 1944 eGFR 1944 Dilated Eye Exam 1944 Foot Exam 1944 Lipid Panel 1944 Hepatitis B Screening 1962 Pneumococcal vaccine 65+ (1 of 2 - PCV) 1963 Zoster Vaccine (1 of 2) 1994 Well Visit 65+ 2009 DTaP/Tdap/Td Vaccine (2 - Tdap) 07/28/2022 2 Influenza Vaccine (#1) 2024 Osteoporosis Screening-Bone Density Scan 01/18/2026 01/18/2024, 01/18/2024, 09/12/2016 Insurance MEDICARE [facility] MEDICARE [place] MEDICARE [place] Advance Directives For more information, please contact: [phone] * Full Code (Latest Code Status on File) Date Activated Date Inactivated Comments 11/04/2019 1:07 PM 11/04/2019 7:25 PM Care Teams Cuff Setter Relationship Specialty Start Date End Date Sophia Pérez NP PCP - General Nurse Practitioner 11/18/19 Layla Mitchell, RN Registered Nurse Gastroenterology 09/30/19
--- OUTSIDE RECORDS SUMMARY | 2025-03-15 11:07 | XMS_ITS | Referral Summary ---
Author Organization [facility] Medical Office Building B Address [address] [place] [address] Care Team Providers Care Television Engineering Teacher Name Role Phone Layla Mitchell RN Unavailable Unavailable Sophia Pérez NP Primary Care Provider [phone] Allergies Active Allergy Reactions Criticality Noted Date [...] (09/30/2019): Added automatically from request for surgery [id number] [place] of foot 02/22/2016 Dermatophytosis of nail 02/22/2016 Diabetic polyneuropathy asso ciated with type 2 diabetes mellitus 02/22/2016 Ingrown nail 02/22/2016 Mass of breast 05/09/2010 Social History Tobacco Use Types Packs/Day Years Used Date Smoking Tobacco: Former Smokeless Tobacco: Never Alcohol Use Standard Drinks/Week Comments No 0 (1 standard drink = 0.6 oz pur e alcohol) Comments Unknown Sex and Gender Information Value Date Recorded Sex Assigned at Not on file Legal Sex Female 12:46 AM WELL LOGGING CAPTAIN MUD ANALYSIS Gender Identity Female 01/24/2021 6:39 PM WELL LOGGING CAPTAIN MUD ANALYSIS Sexual Orientation Straight 01/24/2021 6: 39 PM WELL LOGGING CAPTAIN MUD ANALYSIS Last Filed Vital Signs Vital Sign Reading Time Taken Comments Blood Pressure 142/80 10/11/2024 2:56 PM WELL LOGGING CAPTAIN MUD ANALYSIS Pulse 85 10/11/2024 2:56 PM WELL LOGGING CAPTAIN MUD ANALYSIS Temperature 36.7 C (98 F) 10/11/2024 2:56 PM WELL LOGGING CAPTAIN MUD ANALYSIS Respiratory Rate 17 10/11/2024 2:56 PM WELL LOGGING CAPTAIN MUD ANALYSIS Oxygen Saturation 98% 10/11/2024 2:56 PM WELL LOGGING CAPTAIN MUD ANALYSIS Inhaled Oxygen Concentration - - Weight 88 kg (194 lb) 10/11/2024 2:56 PM WELL LOGGING CAPTAIN MUD ANALYSIS Height 162.6 cm (5' 4 ) 10/11/2024 2:56 PM WELL LOGGING CAPTAIN MUD ANALYSIS Body Mass Index 33.3 10/11/2024 2:56 PM WELL LOGGING CAPTAIN MUD ANALYSIS Plan of Treatment Not on file Insurance MEDICARE [facility] MEDICARE ID[place] MEDICARE IDPA Advance Directives For more information, please contact: [phone] * Full Code (Latest Code Status on File) Date Activated Date Inactivated Comments 11/04/2019 1:07 PM 11/04/2019 7:25 PM Care Teams Television Engineering Teacher Relationship Specialty Start Date End Date Sophia Pérez NP PCP - General Nurse Practitioner 11/18/19 Layla Mitchell, RN Registered Nurse Gastroenterology 09/30/19
--- OUTSIDE RECORDS SUMMARY | 2025-03-15 11:07 | XMS_ITS | Clinical Summary ---
Author Organization [facility] Address [address] [facility], [place] [address] Phone Care Team Providers Care Judge Clerk Name Role Phone Sophia Pérez CORI Primary Care Provider [phone] Efrem Jackson DPM Unavailable [phone] Allergies Active Allergy Reactions Criticality Noted Date Comments Alka4-Complex Diarrhea 02/22/2016 Sabrina butozoliden Cephalexin Other (see Comments) 02/22/2016 Yeast infection Gluten Meal Other (see Comments) 02/22/2016 Indomethacin Other (see Comments) 02/22/2016 headache Etodolac Nausea 02/22/2016 Ibuprofen Nausea 02/22/2016 Other Nausea,Vomiting 02/22/2016 stebesteril Penicillins Nausea,Other (see Comments) 016 Oxacillin Rash 02/22/2016 Tolmetin Diarrhea 02/22/2016 Medications atenolol (TENORMIN) 50 MG Tablet Take 50 mg by mouth daily. Active spironolactone (ALDACTONE) 25 MG Tablet Take 25 mg by mouth daily. Active metFORMIN (GLUCOPHAGE) 500 MG Tablet Take 1,000 mg by mouth 2 times daily (with meals). Active Melatonin 10 MG Tablet Take 10 mg by mouth nightly. Active traMADol (ULTRAM) 50 MG Tablet Take 50-100 mg by mouth every 6 hours as needed for Pain. Active cyclobenzaprine (FLEXERIL) 5 MG Tablet Take 5 mg by mouth 3 times daily. Active diphenhydrAMINE (BENADRYL) 25 MG Tablet Take 25 mg by mouth as needed. Active fluticasone (FLONASE) 50 MCG/ACT Suspension 1-2 Sprays by Nasal route daily. Use in each nostril as directed. Active predniSONE (DELTASONE) 50 MG Tablet Take 1 Tab by mouth daily. 5 Tab 08/26/2017 Active famotidine (PEPCID) 20 MG Tablet Take 1 Tab by mouth 2 times daily. 12 Tab 08/26/2017 Active HYDROcodone-arianna taminophen (NORCO) 5-325 MG Tablet Take 1-2 Tabs by mouth every 6 hours as needed for Pain. 10 Tab 08/26/2017 Active Active Problems Problem Noted Date Diagnosed Date Ingrown nail 02/22/2016 [place] of foot 02/22/2016 Dermatophytosis of nail 02/22/2016 Diabetic polyneuropathy asso ciated with type 2 diabetes mellitus 02/22/2016 Family History Relation Name Status Comments Father Mother Social History Tobacco Use Types Packs/Day Years Used Date Smoking Tobacco: Former Smokeless Tobacco: Former Quit: 12/24/1964 Tobacco Cessation:Counseling Given: No Alcohol Use Standard Drinks/Week Comments No 0 (1 standard drink = 0.6 oz pur e alcohol) Comments No Sex and Gender Information Value Date Recorded Sex Assigned at Not on file Legal Sex Female 4:14 PM DATA GOVERNANCE CONSULTANT Gender Identity Not on file Sexual Orientation Not on file Last Filed Vital Signs Vital Sign Reading Time Taken Comments Blood Pressure 157/71 08/26/2017 4:38 AM CDT Pulse 87 08/26/2017 4:38 AM CDT Temperature 36.2 C (97.2 F) 08/26/2017 4:38 AM CDT Respiratory Rate 18 08/26/2017 4:38 AM CDT Oxygen Saturation 97% 08/26/2017 4:38 AM CDT Inhaled Oxygen Concentration - - Weight 89.8 kg (198 lb) 08/26/2017 4:38 AM CDT Height 162.6 cm (5' 4 ) 08/26/2017 4:38 AM CDT Body Mass Index 33.99 08/26/2017 4:38 AM CDT Plan of Treatment Health Maintenance Due Date Last Done Comments Diabetes: Eye Exam 1944 Diabetes: Foot Exam 1944 Diabetes: Hemoglobin A1c 1944 Hepatitis C Virus (HCV) Screening 1944 TdaP Immunization 1944 Diabetes: Nephropathy Screening 1962 Pneumococcal Immunization (50+ years) (1 of 2 - PCV) 1963 Zoster Immunization (1 of 2) 1994 Respiratory Syncytial Virus (RSV) Immunization (Adult) (1 - 1-dose 75+ series) 2019 Influenza Immunization (#1) 2024 SARS-COV-2 Immunization ( season) 2024 10/04/2021, 02/15/2021, 01/26/2021 DEXA Bone Density 01/18/2026 01/18/2024, 09/12/2016 DTaP/Tdap/Td Immunization Discontinued 07/28/2012 Hepatitis B Immunization Aged Out No longer eligible based on patient's age to complete this topic Meningococcal Immunization (ACWY) Aged Out No longer eligible based on patient's age to complete this topic Rotavirus Immunization Aged Out No lo nger eligible based on patient's age to complete this topic Procedures Procedure Name Priority Date/Time Associated Diagnosis Comments [facility] BONE DENSITOMETRY AXIAL SKELETON Routine 01/18/2024 10:45 AM DATA GOVERNANCE CONSULTANT Asymptomatic menopausal state from Last 3 Months or Most Recently Relevant to Health Maintenance Results * [facility] BONE DENSITOMETRY AXIAL SKELETON (01/18/2024 10:45 AM DATA GOVERNANCE CONSULTANT) Anatomical Region Laterality Modality BODY N/A Computed Radiogr aphy 01/18/2024 6:24 PM DATA GOVERNANCE CONSULTANT Impressions 01/18/2024 6:27 PM DATA GOVERNANCE CONSULTANT IMPRESSION: Low Bone Mass. REFERENCE: Bone mineral density: Normal (T-score above or = -1.0) Low bone mass (T-score between -1.0 and -2.5) replaces the previously used term osteopenia Osteoporosis (T-score = or below -2.5) Please see below follow up recommendations. Medical evaluation for secondary causes of low bone mineral density may be appropriate. FRAX is a World Health Organization validated fracture risk assessment tool that calculates a person's 10 year probability of a major osteoporosis related fracture and hip fracture. According to the National Osteoporosis Foundation guidelines, postmenopausal women and men age 50 or older with low bone mass and a 10 year probability of a major osteoporosis related fracture = or greater than 20% or a 10 year probability of a hip fracture = or greater than 3% should be considered for pharmacological treatment for the prevention of osteoporosis. For further information, including treatment recommendations, please refer to the 2019 ISCD Official Positions (http://www.iscd.org) and the NOF's Clinician's Guide to Prevention and Treatment of Osteoporosis (http://www.nof.org/professionals/clinical-guidelines) Narrative 01/18/2024 6:27 PM DATA GOVERNANCE CONSULTANT EXAM DESCRIPTION: [facility] BONE DENSITOMETRY AXIAL SKELETON REASON FOR STUDY: 78 y/o year old F with given history of: Asymptomatic menopausal state Perforator Operator Oil Well/Model: Hostel Rocket (S/N [id number]) CLINICAL INFORMATION: Current height: 64 inches Maximum height: 65 inches Weight: 187 pounds Risk factors: Postmenopausal, secondary osteoporosis COMPARISON: 09/12/2016 FINDINGS: AP LUMBAR SPINE L1-L4: Total BMD is 1.675 g/cm2 T-score is 3.9 This is decreased in comparison to prior exam which is statistically significant. LEFT HIP: Total BMD is 1.074 g/cm2 T-score is 0.5 This is decreased in comparison to prior exam which is statistically significant. Femoral neck BMD is 0.950 g/cm2 T-score is -0.6 LEFT forearm: 33% radius BMD is 0.727 g/cm2 T-score is -1.8 FRAX: 10 year risk for a major osteoporotic fracture is 9.5 %, 10 year risk for a hip fracture is 1.4 % THIS IS AN ELECTRONICALLY VERIFIED FINAL REPORT 01/18/2024 6:24 PM - Electronically signed by Zac Carpenter M.D. MF: [id number] Report ID: [id number] Reading Location: [id number] Procedure Note Zac Carpenter MD - 01/18/2024 EXAM DESCRIPTION: [facility] BONE DENSITOMETRY AXIAL SKELETON REASON FOR STUDY: 78 y/o year old F with given history of: Asymptomatic menopausal state Perforator Operator Oil Well/Model: Hostel Rocket (S/N [id number]) CLINICAL INFORMATION: Current height: 64 inches Maximum height: 65 inches Weight: 187 pounds Risk factors: Postmenopausal, secondary osteoporosis COMPARISON: 09/12/2016 FINDINGS: AP LUMBAR SPINE L1-L4: Total BMD is 1.675 g/cm2 T-score is 3.9 This is decreased in comparison to prior exam which is statistically significant. LEFT HIP: Total BMD is 1.074 g/cm2 T-score is 0.5 This is decreased in comparison to prior exam which is statistically significant. Femoral neck BMD is 0.950 g/cm2 T-score is -0.6 LEFT forearm: 33% radius BMD is 0.727 g/cm2 T-score is -1.8 FRAX: 10 year risk for a major osteoporotic fracture is 9.5 %, 10 year risk for a hip fracture is 1.4 % THIS IS AN ELECTRONICALLY VERIFIED FINAL REPORT 01/18/2024 6:24 PM - Electronically signed by Zac Carpenter M.D. MF: [id number] Report ID: [id number] Reading Location: [place] [id number] IMPRESSION: Low Bone Mass. REFERENCE: Bone mineral density: Normal (T-score above or = -1.0) Low bone mass (T-score between -1.0 and -2.5) replaces the previously used term osteopenia Osteoporosis (T-score = or below -2.5) Please see below follow up recommendations. Medical evaluation for secondary causes of low bone mineral density may be appropriate. FRAX is a World Health Organization validated fracture risk assessment tool that calculates a person's 10 year probability of a major osteoporosis related fracture and hip fracture. According to the National Osteoporosis Foundation guidelines, postmenopausal women and men age 50 or older with low bone mass and a 10 year probability of a major osteoporosis related fracture = or greater than 20% or a 10 year probability of a hip fracture = or greater than 3% should be considered for pharmacological treatment for the prevention of osteoporosis. For further information, including treatment recommendations, please refer to the 2019 ISCD Official Positions (http://www.iscd.org) and the NOF's Clinician's Guide to Prevention and Treatment of Osteoporosis (http://www.nof.org/professionals/clinical-guidelines) us Ognsalo B Hill MD IMG DEXA ORDERABLES Final Resul t from Last 3 Months or Most Recently Relevant to Health Maintenance Insurance MEDICARE [place]ICAID [place] Care Teams Judge Clerk Relationship Specialty Start Date End Date Sophia Pérez APRN PCP - General Advanced Practice Nurse 02/22/16 Efrem Jackson DPM Podiatry 02/22/16
== END 2025-03-15 10:07 | disposition home or self-care (01) ==
PROVIDERS: PCP Nurse Practitioner Adult Health; Visit Provider Nurse Practitioner Family
DX: R06.09 Other forms of dyspnea (principal)
CPT/HCPCS: 71046

== ENCOUNTER 2025-04-05 08:10 | Outpatient (CLI) | payer MEDICARE, SELFPAY ==
--- OUTSIDE RECORDS SUMMARY | 2025-04-05 08:20 | XMS_ITS | Clinical Summary ---
Author Organization [facility] Medical Office Building B Address [address] [place] [address] Care Team Providers Care Tree Sapper Name Role Phone Layla Mitchell RN Unavailable Unavailable Sophia Pérez NP Primary Care Provider [phone] Allergies Active Allergy Reactions Criticality Noted Date [...] (09/30/2019): Added automatically from request for surgery [id number] [place] of foot 02/22/2016 Dermatophytosis of nail 02/22/2016 [...] on file Legal Sex Female 12:46 AM PHYSICAL THERAPIST CENTER MANAGER Gender Identity Female 01/24/2021 6:39 PM PHYSICAL THERAPIST CENTER MANAGER Sexual Orientation Straight 01/24/2021 6: 39 PM PHYSICAL THERAPIST CENTER MANAGER Obstetrics History Last Filed Vital Signs Vital Sign Reading Time Taken Comments Blood Pressure 142/80 10/11/2024 2:56 PM PHYSICAL THERAPIST CENTER MANAGER Pulse 85 10/11/2024 2:56 PM PHYSICAL THERAPIST CENTER MANAGER Temperature 36.7 C (98 F) 10/11/2024 2:56 PM PHYSICAL THERAPIST CENTER MANAGER Respiratory Rate 17 10/11/2024 2:56 PM PHYSICAL THERAPIST CENTER MANAGER Oxygen Saturation 98% 10/11/2024 2:56 PM PHYSICAL THERAPIST CENTER MANAGER Inhaled Oxygen Concentration - - Weight 88 kg (194 lb) 10/11/2024 2:56 PM PHYSICAL THERAPIST CENTER MANAGER Height 162.6 cm (5' 4 ) 10/11/2024 2:56 PM PHYSICAL THERAPIST CENTER MANAGER Body Mass Index 33.3 10/11/2024 2:56 PM PHYSICAL THERAPIST CENTER MANAGER Plan of Treatment Health Maintenance Due Date [...] (2 - Tdap) 07/28/2022 2 Influenza Vaccine (Season Ended) 2025 Osteoporosis Screening-Bone Density Scan 01/18/2026 01/18/2024, 01/18/2024, 09/12/2016 Insurance MEDICARE [facility] MEDICARE [place] MEDICARE ID[place] Advance Directives For more information, please contact: [phone] * Full Code (Latest Code Status on File) Date Activated Date Inactivated Comments 11/04/2019 1:07 PM 11/04/2019 7:25 PM Care Teams Tree Sapper Relationship Specialty Start Date End Date Sophia Pérez NP PCP - General Nurse Practitioner 11/18/19 Layla Mitchell, RN Registered Nurse Gastroenterology 09/30/19
--- OUTSIDE RECORDS SUMMARY | 2025-04-05 08:20 | XMS_ITS | Referral Summary ---
Author Organization [facility] Medical Office Building [address] Address [address] [place] [address] Care Team Providers Care Development Technical Lead Name Role Phone Layla Mitchell RN Unavailable Unavailable Sophia Pérez NP Primary Care Provider [phone] Allergies Active Allergy Reactions Criticality Noted Date [...] (09/30/2019): Added automatically from request for surgery [id number] [place] of foot 02/22/2016 Dermatophytosis of nail 02/22/2016 [...] on file Legal Sex Female 12:46 AM CARD GRINDER Gender Identity Female 01/24/2021 6:39 PM CARD GRINDER Sexual Orientation Straight 01/24/2021 6: 39 PM CARD GRINDER Last Filed Vital Signs Vital Sign Reading Time Taken Comments Blood Pressure 142/80 10/11/2024 2:56 PM CARD GRINDER Pulse 85 10/11/2024 2:56 PM CARD GRINDER Temperature 36.7 C (98 F) 10/11/2024 2:56 PM CARD GRINDER Respiratory Rate 17 10/11/2024 2:56 PM CARD GRINDER Oxygen Saturation 98% 10/11/2024 2:56 PM CARD GRINDER Inhaled Oxygen Concentration - - Weight 88 kg (194 lb) 10/11/2024 2:56 PM CARD GRINDER Height 162.6 cm (5' 4 ) 10/11/2024 2:56 PM CARD GRINDER Body Mass Index 33.3 10/11/2024 2:56 PM CARD GRINDER Plan of Treatment Not on file Insurance MEDICARE [facility] MEDICARE IDPA MEDICARE IDPA Advance Directives For more information, please contact: [phone] * Full Code (Latest Code Status on File) Date Activated Date Inactivated Comments 11/04/2019 1:07 PM 11/04/2019 7:25 PM Care Teams Development Technical Lead Relationship Specialty Start Date End Date Sophia Pérez NP PCP - General Nurse Practitioner 11/18/19 Layla Mitchell, RN Registered Nurse Gastroenterology 09/30/19
--- OUTSIDE RECORDS SUMMARY | 2025-04-05 08:20 | XMS_ITS | Continuity of Care Document ---
Author Organization [facility] Address [address] [place] [address] Phone Care Team Providers Care Fountain Jerk Name Role Phone Paris Sandoval Unavailable Unavailable Advance Directives Directive Yes / No Effective Date File Name No Information Encounters Encounter Description Practice Location Reason(s) For Visit Diagnoses Date Provider Providers Copied on Encounter [facility], [address], [place], [place], [id number], [place] tel:[phone] [facility] No Information [address] [place]. [address] , [address], [place], [address], [place]. tel:[phone] Family History Family Member Type Diagnosis Age At Onset No Information Payers Payer name Insurance type Covered green party ID Authoriza tion(s) No Information Social [...]
--- NOTE | 2025-04-05 12:57 | WPDPFTINT ---
PFT Procedure Performed PFT Procedure Performed Spirometry with Pre/Post Bronchodilator Plethysmography (Lung Vol) Diffusing Cap (DLCO) Flow Vol Loop PFT Interpretation This is a pulmonary function test with pre and post-bronchodilator spirometry, plethysmography and diffusing capacity. The test was performed and results interpreted in accordance with the 2019 and 2005 ATS/ERS Task Force guidelines respectively using the Global Lung Function Initiative-2012 reference equations. Patient demonstrated good effort and cooperation. Reproducibility criteria were met. The quality of the pre bronchodilator spirometry maneuver was Grade A and post bronchodilator spirometry maneuver was Grade A. Findings: Spirometry: the contour the expiratory flow tracing demonstrates a notched pattern in 2 of 4 pre bronchodilator maneuvers and 2 of 4 post bronchodilator maneuvers. The contour the inspiratory flow tracing is normal. The pre bronchodilator FVC is 2.90 L, 114% predicted. The pre bronchodilator FEV1 is 2.32 L, 119% predicted. The pre bronchodilator FEV1: FVC ratio is 80%. The post bronchodilator FVC is 2.85 L, representing a 2% decrease. The post bronchodilator FEV1 is 2.34 L, representing a 1% increase. The post bronchodilator FEV1: FVC ratio is 82%. Plethysmography: The total lung capacity is 5.07 L, 100% predicted. The functional residual capacity is 2.23 L, 76% predicted. The residual volume is 2.05 L, 86% predicted. Diffusing capacity: The diffusing capacity unadjusted for hemoglobin and carboxyhemoglobin is 18.0, 93% predicted. The diffusing capacity adjusted for alveolar volume is 4.38, 106% predicted. Respiratory muscle force: The maximal inspiratory pressure (MIP) is 34 cm of water, 54% predicted. The maximal expiratory pressure (MEP) is 37 cm water, 29% predicted. In comparison to previous pulmonary function testing on 02/10/2024 the post bronchodilator FVC is unchanged from 3.02 L to 2.85 L. The post bronchodilator FEV1 is unchanged from 2.52 L to 2.34 L. The total lung capacity is unchanged from 5.00 L to 5.07 L. The functional residual capacity is unchanged from 2.10 L to 2.23 L. The residual volume is unchanged from 1.88 L to 2.05 L. The diffusing capacity unadjusted for hemoglobin and carboxyhemoglobin is unchanged from 18.7 to 18.0. The diffusing capacity adjusted for alveolar volume is unchanged from 4.44 to 4.38. The MIP is unchanged from 37 cm water to 34 cm water. The MEP is unchanged from 40 cm of water 237 cm of water. Impression: There is reproducible expiratory flow notched pattern. This has been described with coughing or tracheobronchomalacia. Otherwise the spirometry is normal without evidence of an obstructive abnormality. There is no significant improvement after inhaling a single dose of albuterol. The lung volumes are normal. The diffusing capacity is normal. The maximal inspiratory pressure and maximal expiratory pressure values are both below the lower limit of normal which is defined as the 5th percentile of predicted and thus suggests the presence of respiratory muscle weakness. Clinical correlation is recommended. In comparison to previous pulmonary function testing on 02/10/2024 there has been no significant change in the FVC, FEV1, total lung capacity, functional residual capacity, residual volume, diffusing capacity, maximal inspiratory pressure or maximal expiratory pressure. Clinical correlation is recommended.
== END 2025-04-05 08:11 | disposition home or self-care (01) ==
PROVIDERS: PCP Nurse Practitioner Adult Health; Visit Provider Nurse Practitioner Family
DX: R06.09 Other forms of dyspnea (principal); G12.21 Amyotrophic lateral sclerosis; R94.2 Abnormal results of pulmonary function studies
CPT/HCPCS: 94060; 94726; 94729